=== PATIENT | male | born 1970 | race Caucasian/White ===

== ENCOUNTER → 2024-02-22 10:07 | Outpatient (REF) | payer BC, SELFPAY | LOC: HWRCS 10:07 | PROVIDERS: ATTENDING PHYSICIAN Nurse Practitioner; FAMILY PHYSICIAN Family Medicine | DX: R06.02 Shortness of breath (principal) | CPT/HCPCS: 93306 ==

== ENCOUNTER → 2024-02-24 08:04 | Outpatient (REF) | payer BC, SELFPAY | LOC: DHCBC/DCA 08:04 | PROVIDERS: ATTENDING PHYSICIAN Nurse Practitioner; FAMILY PHYSICIAN Family Medicine | DX: R06.02 Shortness of breath (principal) | CPT/HCPCS: 78452; 93017; A9500; J2785 ==

== ENCOUNTER → 2025-02-27 10:13 | Outpatient (REF) | payer BC, SELFPAY | LOC: RAD 10:13 | PROVIDERS: ATTENDING PHYSICIAN Specialist; FAMILY PHYSICIAN Internal Medicine | DX: R31.1 Benign essential microscopic hematuria (principal) | CPT/HCPCS: 76770 ==

== ENCOUNTER 2025-02-28 09:48 | Emergency (ER) | payer BC, SELFPAY ==
[2025-02-28 09:52] VITALS: BP 163/107
--- NOTE | 2025-02-28 10:54 | ED.GENMED ---
History of Present Illness
<ISAIAH Palafox Last Filed: 02/28/25 14:55>
General
Chief Complaint: Flank Pain
Source: patient
Exam Limitations: none
Time Seen by Provider: 02/28/25 10:24
History of Present Illness
History of Present Illness:
54-year-old male presents complaining of left flank pain. This onset was overnight last night sharp in nature radiates to left lower abdomen. This reminds him of prior kidney stone she has had in the past. He has been having difficulty urinating
as well. Today he noticed his urine was dark. At the time my exam he states his pain is resolved. No fever. He was nauseous without vomiting. No chest pain or shortness of breath. No other complaints
Past History
<ISAIAH Palafox Last Filed: 02/28/25 14:55>
Past History
ED Past Medical History: GERD, Hypercholesterolemia, NC, Psychiatric and Other (Chronic back pain, diverticulitis, status postcardiac arrest with NC, sleep apnea)
ED Past Surgical History: Appendectomy, Cardiac (Stent X1) and Other (hernia surgery)
Social History
Tobacco: Former smoker
Alcohol: None
Drug: None
Personal:
Living: with family
Employment: Employed
Family History
Family History: Negative Diabetes, Hypertension or CAD
Phy Exam
<ISAIAH Palafox Last Filed: 02/28/25 14:55>
Physical Exam
Physical Exam:
General: Well-appearing male no acute respiratory distress chest HEENT: Normal cephalic atraumatic heart: Regular rate and rhythm
Lungs: Clear no wheeze
Abdomen soft nontender nondistended no guarding rebound normal bowel sounds
Extremities: No cyanosis or edema
Course
<ISAIAH Palafox Last Filed: 02/28/25 14:55>
Orders/Labs/Results
Orders:
Orders
02/28/25 10:34
CT Abd/pel Without Iv Or Oral Urgent
Comment:
Reason For Exam: left flank pain
02/28/25 11:19
Complete Blood Count/With Diff Urgent
Comprehensive Metabolic Panel Urgent
Urinalysis Reflex To Culture Urgent
Date Specimen was Collected: 02/28/25
Time Specimen was Collected: 11:17
Urine Microscopic Reflex Cult Urgent
Urine Culture Urgent
AMELIA Source: U
Specimen Description:
Date Specimen was Collected: 02/28/25
Time Specimen was Collected: 11:17
Abnormal Lab Results
02/28/25
11:19
Abs Immat Gran (auto) 0.1 H 10^3/uL
(0-0.05)
Absolute Neuts (auto) 8.0 H 10^3/uL
(1.4-6.5)
Absolute Monos (auto) 0.7 H 10^3/uL
(0.1-0.6)
Neutrophils % 80.0 H %
(42.2-75.2)
Lymphocytes % 11.9 L %
(20.5-51.1)
Ur Occult Blood Reflex 4+ A
(Negative)
Leukocyte Esterase Rfl 1+ A
(Negative)
Urine RBC 50-60 A /HPF
(0-2)
Urine Bacteria (Reflex) Few A
(Negative)
Urine Albumin (Reflex) 2+ A
(Neg - Trace)
02/28/25 11:19
02/28/25 11:19
Vital Signs
Initial and Last Documented VS:
Initial Vital Signs
Temp Pulse Resp BP Pulse Ox
97.6 F 64 20 163/107 99
02/28/25 09:52 02/28/25 09:52 02/28/25 09:52 02/28/25 09:52 02/28/25 09:52
Last Documented Vital Signs
Temp Pulse Resp BP Pulse Ox
97.6 F 60 16 143/93 97
02/28/25 09:52 02/28/25 15:31 02/28/25 11:25 02/28/25 16:00 02/28/25 16:00
<Alyce Zamudio NP - Last Filed: 02/28/25 16:14>
Orders/Labs/Results
Orders:
Orders
02/28/25 10:34
CT Abd/pel Without Iv Or Oral Urgent
Comment:
Reason For Exam: left flank pain
02/28/25 11:19
Complete Blood Count/With Diff Urgent
Comprehensive Metabolic Panel Urgent
Urinalysis Reflex To Culture Urgent
Date Specimen was Collected: 02/28/25
Time Specimen was Collected: 11:17
Urine Microscopic Reflex Cult Urgent
Urine Culture Urgent
AMELIA Source: U
Specimen Description:
Date Specimen was Collected: 02/28/25
Time Specimen was Collected: 11:17
Abnormal Lab Results
02/28/25
11:19
Abs Immat Gran (auto) 0.1 H 10^3/uL
(0-0.05)
Absolute Neuts (auto) 8.0 H 10^3/uL
(1.4-6.5)
Absolute Monos (auto) 0.7 H 10^3/uL
(0.1-0.6)
Neutrophils % 80.0 H %
(42.2-75.2)
Lymphocytes % 11.9 L %
(20.5-51.1)
Ur Occult Blood Reflex 4+ A
(Negative)
Leukocyte Esterase Rfl 1+ A
(Negative)
Urine RBC 50-60 A /HPF
(0-2)
Urine Bacteria (Reflex) Few A
(Negative)
Urine Albumin (Reflex) 2+ A
(Neg - Trace)
02/28/25 11:19
02/28/25 11:19
Vital Signs
Initial and Last Documented VS:
Initial Vital Signs
Temp Pulse Resp BP Pulse Ox
97.6 F 64 20 163/107 99
02/28/25 09:52 02/28/25 09:52 02/28/25 09:52 02/28/25 09:52 02/28/25 09:52
Last Documented Vital Signs
Temp Pulse Resp BP Pulse Ox
97.6 F 60 16 143/93 97
02/28/25 09:52 02/28/25 15:31 02/28/25 11:25 02/28/25 16:00 02/28/25 16:00
<Du Landeros PA-C - Last Filed: 02/28/25 14:55>
MDM/Problems Addressed
Differential Diagnosis Includes:
Patient with left flank pain to the abdomen. Consider renal colic with diverticulitis versus constipation versus UTI
Labs and urinalysis pending. CT ordered
<Du Landeros PA-C - Last Filed: 02/28/25 14:55>
*Pulse Oximetry
SaO2: 99
Oxygen Mode of Delivery: Room air
<Alyce Zamudio NP - Last Filed: 02/28/25 16:14>
*Pulse Oximetry
Patient hypoxic: no
*Critical Care Note
Total Time (30-74mins, 75-104mins- exclusive of procedures): Not Applicable
<Du Landeros PA-C - Last Filed: 02/28/25 14:55>
Update Note
Update Note:
CT pending official radiology report but it does appear to that there is a 2 to 3 mm stone in the distal left ureter. No evidence of urinary tract infection
<Alyce Zamudio NP - Last Filed: 02/28/25 16:14>
Update Note
Update Note:
CT pending official radiology report but it does appear to that there is a 2 to 3 mm stone in the distal left ureter. No evidence of urinary tract infection.
CT report reviewed. Confirms a 3mm calculus in the distal left ureter, 'just proximal to the left UVJ with minimal left hydroureteronephrosis '. Reviewed CT findings with patient and spouse. Will continue with plan set in place by previous
provider. He will be discharged home tonight and will update his urologist in the a.m. He was given instructions on signs and symptoms to return to the emergency department and he is agreeable to this plan.
ED Attending Note
<Du Landeros PA-C - Last Filed: 02/28/25 14:55>
-
Portions of this chart may have been created with voice recognition software.� Occasional wrong word or��sound alike� substitutions may have occurred due to the inherent limitations of voice recognition software.
Discharge Plan
Departure
Patient Disposition: Home (Routine Discharge)
Date of Disposition: 02/28/25
Time of Disposition: 15:45
Patient with high blood pressure during this ER visit?: No
Condition: Good
Discharge Problem:
Kidney stone
Instructions: Kidney Stones (DC)
Prescriptions:
No Action
alprazolam 0.5 MG tablet
0.5 mg PO DAILY PRN (Reason: anxiety)
Patient Comments:
10/21/2022: last filled 08/27/22, 30 tabs for 30 days from [facility]
carvedilol 3.125 MG tablet
3.125 mg PO BID Qty: 60 11RF
aspirin 81 MG tablet,chewable
81 mg PO DAILY 0RF
atorvastatin 80 MG tablet
40 mg PO QPM
famotidine 40 mg Tablet
40 mg PO HS
escitalopram oxalate 10 mg Tablet
10 mg PO DAILY
Ozempic 1 mg/dose (2 mg/1.5 mL) Pen Injector
2 mg SC SA
alfuzosin 10 mg tablet extended release 24 hr
10 mg PO HS
Referrals:
Roman Barr DO [Family Provider, Internal Medicine]
Activity Restrictions/Additional Instructions:
Drink plenty of water. Use a strainer for the urine. Follow-up with urology as planned. You may use ibuprofen or Tylenol if needed for pain
Interventions
Interventions:
*Risk Screen - Suicide Last Done: 02/28/25 09:52
*General Assessment Last Done: 02/28/25 09:52
*Neglect/Abuse Screening Last Done: 02/28/25 09:52
*ED- Fall Risk Assessment Last Done: 02/28/25 11:27
*ED COVID-19 Vaccine History Last Done: 02/28/25 11:27
*ED Influenza Vaccine History Last Done: 02/28/25 11:27
*Nursing Disposition Last Done: 02/28/25 16:07
CK-Lpgakm-Amunhomfeu Assessment Last Done: 02/28/25 11:26
ED-Male Genitourinary Assessment Last Done: 02/28/25 11:26
Discharge Date and Time
Discharge Date/Time: 02/28/25 16:07
Print Language: TURKISH
[2025-02-28 11:25] VITALS: BP 127/84
[2025-02-28 11:27] VITALS: BMI 33.1
[2025-02-28 11:38] LABS: Urine Character Slightly Cloudy (Clear)
[2025-02-28 11:44] LABS: Urine Squamous Cell 0-2 /LPF (Few)
[2025-02-28 11:45] LABS: Urine Red Blood Cell 50-60 /HPF (0-2); Urine White Cell 0-2 /HPF (0-5)
[2025-02-28 11:50] LABS: Hematocrit 43.0 % (39.0-52.0); Hemoglobin 14.4 g/dL (13.0-18.0); Mean Corp Hgb Conc. 33.5 g/dL (33.0-37.0); Mean Corpuscular Volume 91.5 fL (80.0-94.0); Nucleated Red Blood Cells % 0 % (-); Platelet Count 276 10^3/uL (130-400); Red Cell Dist. Width 12.1 % (11.5-14.5)
[2025-02-28 12:39] LABS: ALT (SGPT) 45 U/L (0-50); AST (SGOT) 26 U/L (17-59); Albumin 4.4 g/dl (3.5-5.0); Alkaline Phosphatase 114 U/L (38-126); Blood Urea Nitrogen 16 mg/dl (9-20); Calcium 9.5 mg/dl (8.4-10.2); Carbon Dioxide 26 mmol/L (22-30); Chloride 107 mmol/L (98-107); Estimated Creatinine Clearance 108 ml/min; Glucose 97 mg/dl (70-99); Potassium 4.4 mmol/L (3.5-5.1); Sodium 136 mmol/L (135-145); Total Protein 7.2 g/dl (6.3-8.2); eGFR > 60.00
[2025-02-28 15:29] VITALS: BP 139/86
[2025-02-28 16:00] VITALS: BP 143/93
== END 2025-02-28 16:07 | disposition home or self-care (01) ==
LOC: EMR 09:48
PROVIDERS: Physician Assistant; EMERGENCY PHYSICIAN Emergency Medicine; FAMILY PHYSICIAN Internal Medicine
DX: N13.2 Hydronephrosis with renal and ureteral calculous obstruction (principal); E78.00 Pure hypercholesterolemia, unspecified; G47.30 Sleep apnea, unspecified; Z87.891 Personal history of nicotine dependence; Z95.5 Presence of coronary angioplasty implant and graft; Z90.49 Acquired absence of other specified parts of digestive tract
CPT/HCPCS: 99284; 74176; 80053; 81003; 81015; 85025; 87086